=== PATIENT | female | born 1960 | race African-American/Black ===

== ENCOUNTER 2017-11-25 19:02 | Emergency (ER) | payer MEDICAID ==
[2017-11-25 19:12] VITALS: BP 151/79
--- NOTE | 2017-11-25 19:45 | ER Document Report ---
ED Medical Screen (RME) - General Chief Complaint: Arm Problem Stated Complaint: TINGLING IN LEFT ARM Time Seen by Provider: 11/25/17 19:40 Notes: Patient complains of left-sided neck and left arm pain. She does have a rash on her posterior left neck that appears to be coalesced vesicles consistent with possible shingles. TRAVEL OUTSIDE OF THE [place] IN LAST 30 DAYS: No - Related Data Allergies/Adverse Reactions: bees Allergy (Uncoded 11/25/17 19:04) Past Medical History - Social History Chew tobacco use (# tins/day): No Frequency of alcohol use: Occasional Drug Abuse: None Renal/ Medical History: Denies: Hx Peritoneal Dialysis Musculoskeltal Medical History: Reports Hx Arthritis - Immunizations Hx Diphtheria, Pertussis, Tetanus Vaccination: No Physical Exam - Vital signs Vitals: Temp Pulse Resp BP Pulse Ox 98.1 F 73 20 151/79 H 96 11/25/17 19:11 11/25/17 19:11 11/25/17 19:11 11/25/17 19:11 11/25/17 19:11 Course - Vital Signs Vital signs: Temp Pulse Resp BP Pulse Ox 98.1 F 73 20 151/79 H 96 11/25/17 19:11 11/25/17 19:11 11/25/17 19:11 11/25/17 19:11 11/25/17 19:11
[2017-11-25 20:33] LABS: ABSOLUTE EOSINOPHILS # (AUTO) 0.2 10^3/uL (0.0-0.6); ABSOLUTE LYMPHOCYTES (AUTO) 1.9 10^3/uL (0.5-4.7); ABSOLUTE MONOCYTES (AUTO) 0.7 10^3/uL (0.1-1.4); ABSOLUTE NEUT (AUTO) 2.8 10^3/uL (1.7-8.2); BASOPHILS % (AUTO) 0.5 % (0-2); EOSINOPHILS % (AUTO) 2.8 % (0-6); HEMATOCRIT 38.2 % (36.0-47.0); HEMOGLOBIN 12.7 g/dL (12.0-15.5); LYMPHOCYTES % (AUTO) 34.5 % (13-45); MEAN CORPUSCULAR HEMOGLOBIN 28.1 pg (27.0-33.4); MEAN CORPUSCULAR HGB CONC 33.2 g/dL (32.0-36.0); MEAN CORPUSCULAR VOLUME 85 fl (80-97); MONOCYTES % (AUTO) 11.9 % (3-13); PLATELET COUNT 279 10^3/uL (150-450); RED BLOOD COUNT 4.52 10^6/uL (3.72-5.28); SEGMENTED NEUTROPHILS % (AUTO) 50.3 % (42-78); TOTAL CELLS COUNTED % (AUTO) 100 %; WHITE BLOOD COUNT 5.6 10^3/uL (4.0-10.5)
[2017-11-25 20:47] LABS: ALANINE AMINOTRANSFERASE 25 U/L (9-52); ALBUMIN 4.1 g/dL (3.5-5.0); ALKALINE PHOSPHATASE 78 U/L (38-126); ANION GAP 11 (5-19); ASPARTATE AMINO TRANSFERASE 23 U/L (14-36); BILIRUBIN,DIRECT 0.5 mg/dL (0.0-0.4); BILIRUBIN,TOTAL 0.5 mg/dL (0.2-1.3); BLOOD UREA NITROGEN 14 mg/dL (7-20); CALCIUM 9.6 mg/dL (8.4-10.2); CARBON DIOXIDE 30 mmol/L (22-30); CHLORIDE 105 mmol/L (98-107); GLUCOSE 100 mg/dL (75-110); SODIUM 145.7 mmol/L (137-145); TOTAL PROTEIN 7.4 g/dL (6.3-8.2)
--- NOTE | 2017-11-26 08:00 | EKG REPORT ---
SEVERITY:- BORDERLINE ECG - SINUS RHYTHM : Confirmed by: Yonatan José MD 26-Nov-2017 07:59:19
== END 2017-11-25 21:45 | disposition left against medical advice (07) ==
LOC: ER 19:02
DX: R20.2 Paresthesia of skin (principal); M54.2 Cervicalgia; M79.602 Pain in left arm; Z91.030 Bee allergy status; Z53.20 Procedure and treatment not carried out because of patient's decision for unspecified reasons
CPT/HCPCS: 36415; 80053; 84484; 85025; 93005; 93010; 99281

== ENCOUNTER → 2018-08-20 | Outpatient (CLI) | payer MEDICAID ==
--- NOTE | 2018-08-23 12:48 | WOMENS IMAGING REPORT ---
EXAM DESCRIPTION: BILAT SCREENING MAMMO W/CAD COMPLETED DATE/TIME: 08/20/2018 1:30 pm REASON FOR STUDY: Z12.31 BILATERAL SCREENING MAMMOGRAM Z12.31 ENCNTR SCREEN MAMMOGRAM FOR MALIGNANT NEOPLASM OF VILMA COMPARISON: None. TECHNIQUE: Standard craniocaudal and mediolateral oblique views of each breast recorded using [employer] acquisition. LIMITATIONS: None. FINDINGS: No masses, calcifications or architectural distortion. No areas of suspicion. Read with the assistance of CAD. .[facility] - R2 [employer]ova Version 1.3 .[facility] - R2 Cenova Version 1.3 .[facility] - R2 Cenova Version 2.4 .[facility] - R2 Cenova Version 2.4 .[facility] - R2 [employer] Version 9.2 IMPRESSION: NORMAL MAMMOGRAM. BIRADS 1. BREAST DENSITY: b. There are scattered areas of fibroglandular density. BIRAD: 1 NEGATIVE RECOMMENDATION: ROUTINE SCREENING COMMENT: The patient has been notified of the results by letter per SA requirements. Additional no tification policies are in place for contacting patient with suspicious or incomplete findings. Quality ID #[id number]: The [employer] recommends an annual screening mammogram for women aged 40 years or over. This facility utilizes a reminder system to ensure that all patients receive reminder letters, and/or direct phone calls for appointments. This includes reminders for routine scr eening mammograms, diagnostic mammograms, or other Breast Imaging Interventions when appropriate. Th is patient will be placed in the appropriate reminder system. The [employer] (ACR) has developed recommendations for screening MRI of the breast s in certain patient populations, to be used in conjunction with mammography. Breast MRI surveillanc e may be appropriate for women with more than 20% lifetime risk of developing breast cancer as deter mined by genetic testing, significant family history of the disease, or history of mantle radiation f or Hodgkins Disease. ACR Practice Guidelines 2008. TECHNICAL DOCUMENTATION: FINDING NUMBER: (1) ASSESSMENT: (1) JOB ID: [id number] [employer]- All Rights Reserved Reading location - IP/workstation name: [email or web address]
== END ==
LOC: WI 13:06
PROVIDERS: ATTEND Physician Assistant
DX: Z12.31 Encounter for screening mammogram for malignant neoplasm of breast (principal)
CPT/HCPCS: 77067

== ENCOUNTER 2019-07-14 23:23 | Observation (INO) | payer MEDICAID ==
[2019-07-15 01:45] LABS: ABSOLUTE EOSINOPHILS # (AUTO) 0.3 10^3/uL (0.0-0.6); ABSOLUTE LYMPHOCYTES (AUTO) 3.1 10^3/uL (0.5-4.7); ABSOLUTE MONOCYTES (AUTO) 0.7 10^3/uL (0.1-1.4); ABSOLUTE NEUT (AUTO) 2.2 10^3/uL (1.7-8.2); BASOPHILS % (AUTO) 0.7 % (0-2); HEMATOCRIT 41.4 % (36.0-47.0); HEMOGLOBIN 13.8 g/dL (12.0-15.5); LYMPHOCYTES % (AUTO) 49.3 % (13-45); MEAN CORPUSCULAR HGB CONC 33.3 g/dL (32.0-36.0); MEAN CORPUSCULAR VOLUME 84 fl (80-97); MONOCYTES % (AUTO) 10.6 % (3-13); PLATELET COUNT 287 10^3/uL (150-450); RED BLOOD COUNT 4.93 10^6/uL (3.72-5.28); RED CELL DISTRIBUTION WIDTH 14.4 % (11.5-14.0); SEGMENTED NEUTROPHILS % (AUTO) 34.4 % (42-78); TOTAL CELLS COUNTED % (AUTO) 100 %; WHITE BLOOD COUNT 6.3 10^3/uL (4.0-10.5)
--- NOTE | 2019-07-15 01:47 | ER Document Report ---
ED General - General Chief Complaint: High Blood Pressure Stated Complaint: BLOOD PRESSURE ISSUE/BLURRY VISION Time Seen by Provider: 07/15/19 01:32 Primary Care Provider: NACHO RAHMAN PA-C [Primary Care Provider] - Follow up as needed Notes: 59-year-old female presents with headache, blurry vision, left-sided tingling, and slurred speech that lasted approximately 30 minutes tonight. Patient states that she has never had this happen before. When EMS arrived patient's blood pressure was initially 218/130. Patient does not have a history of high blood pressure. Patient states that her symptoms have currently resolved. Patient denies any chest pain. TRAVEL OUTSIDE OF THE [place] IN LAST 30 DAYS: No - Related Data Allergies/Adverse Reactions: bees Allergy (Uncoded 11/25/17 19:04) Home Medications: Meloxicam, prilosec Past Medical History - Social History Smoking Status: Former Smoker Chew tobacco use (# tins/day): No Frequency of alcohol use: weekends Drug Abuse: None Family History: None Patient has suicidal ideation: No Patient has homicidal ideation: No Renal/ Medical History: Denies: Hx Peritoneal Dialysis Musculoskeletal Medical History: Reports Hx Arthritis - Immunizations Hx Diphtheria, Pertussis, Tetanus Vaccination: No Review of Systems - Review of Systems Notes: Constitutional: Negative for fever. HENT: Negative for sore throat. Eyes: Positive for visual changes. Cardiovascular: Negative for chest pain. Respiratory: Negative for shortness of breath. Gastrointestinal: Negative for abdominal pain, vomiting or diarrhea. Genitourinary: Negative for dysuria. Musculoskeletal: Negative for back pain. Skin: Negative for rash. Neurological: Positive for headaches, slurred speech, left-sided tingling. 10 point ROS negative except as marked above and in HPI. Physical Exam - Vital signs Vitals: Temp Pulse Resp BP Pulse Ox 97.8 F 69 16 164/89 H 99 07/14/19 23:46 07/14/19 23:46 07/14/19 23:46 07/14/19 23:46 07/14/19 23:46 - Notes Notes: GENERAL: Well-appearing, well-nourished and in no acute distress. HEAD: Atraumatic, normocephalic. EYES: Pupils equal round and reactive to light, extraocular movements intact, sclera anicteric, conjunctiva are normal. NECK: Normal range of motion, supple without lymphadenopathy or JVD. LUNGS: Breath sounds clear to auscultation bilaterally and equal. No wheezes rales or rhonchi. HEART: Regular rate and rhythm without murmurs, rubs or gallops. EXTREMITIES: Normal range of motion, no pitting or edema. No clubbing or cyanosis. NEUROLOGICAL: Cranial nerves II through XII grossly intact. Normal speech, normal gait. PERRLA. EOM intact bilaterally. No facial droop. No tongue deviation. Industrial Ecology Technician strength equal bilaterally. Sensory intact bilaterally. Upper/lower extremity strength equal bilaterally. PSYCH: Normal mood, normal affect. SKIN: Warm, Dry, normal turgor, no rashes or lesions noted. Course - Re-evaluation Re-evalutation: 07/15/19 59-year-old female presents with headache, blurry vision, left-sided tingling, and slurred speech that lasted approximately 30 minutes tonight. Work-up initiated. Patient was hypertensive upon EMS arrival. Patient denies a [place] history of hypertension. Suspicious for possible TIA versus hypertensive emergency. 07/15/19 03:[address] Schroeder who accepted pt for admission. - Vital Signs Vital signs: Temp Pulse Resp BP Pulse Ox 97.8 F 69 16 164/89 H 99 07/14/19 23:46 07/14/19 23:46 07/14/19 23:46 07/14/19 23:46 07/14/19 23:46 - Laboratory Result Diagrams: 07/14/19 22:57 07/14/19 22:57 Laboratory results interpreted by me: 07/14/19 07/14/19 07/15/19 22:57 22:57 02:00 RDW 14.4 H Lymph % (Auto) 49.3 H Seg Neutrophils % 34.4 L Glucose 133 H Urine Urobilinogen 2.0 H Leukocyte Esterase Rfl TRACE H Discharge - Discharge Clinical Impression: TIA (transient ischemic attack) Condition: Stable Disposition: ADMITTED INPATIENT Admitting Provider: Elda (Hospitalist) Unit Admitted: IMCU Referrals: NACHO RAHMAN PA-C [Primary Care Provider] - Follow up as needed
[2019-07-15 01:51] LABS: ALBUMIN 4.3 g/dL (3.5-5.0); ALKALINE PHOSPHATASE 105 U/L (38-126); ANION GAP 10 (5-19); ASPARTATE AMINO TRANSFERASE 31 U/L (14-36); BILIRUBIN,DIRECT 0.4 mg/dL (0.0-0.4); BILIRUBIN,TOTAL 0.6 mg/dL (0.2-1.3); BLOOD UREA NITROGEN 13 mg/dL (7-20); CALCIUM 9.5 mg/dL (8.4-10.2); CARBON DIOXIDE 28 mmol/L (22-30); CHLORIDE 105 mmol/L (98-107); GLUCOSE 133 mg/dL (75-110); POTASSIUM 4.3 mmol/L (3.6-5.0)
[2019-07-15] MEDS ORDERED: METOCLOPRAMIDE HCL INJ/PF 10 MG/2 ML SDV IV ONE (02:14)
--- NOTE | 2019-07-15 02:24 | RADIOLOGY REPORT (SQ) ---
CLINICAL HISTORY: slurred speech, headache, visual changes COMPARISON: None. TECHNIQUE: CT HEAD WITHOUT IV CONTRAST on 07/15/2019 1:33 AM WEARING APPAREL FOLDER This exam was performed according to our departmental dose-optimization program, which includes automated exposure control, adjustment of the mA and/or kV according to patient size and/or use of iterative reconstruction technique. FINDINGS: There is no acute hemorrhage, mass effect or midline shift. Hernandez-white differentiation is preserved. There is no hydrocephalus. There is no significant volume loss for age. There are mild patchy hypodensities within the periventricular and subcortical white matter, consistent with microangiopathic ischemic changes. The calvarium is intact. Orbits and globes are unremarkable. The paranasal sinuses are clear. Mastoid air cells are clear. IMPRESSION: No acute intracranial findings.
--- NOTE | 2019-07-15 02:27 | RADIOLOGY REPORT (SQ) ---
EXAM DESCRIPTION: XR CHEST 2 VIEWS COMPLETED DATE/TME: 07/15/2019 01:33 CLINICAL HISTORY: 59 years, Female, slurred speech, headache, visual changes COMPARISON: None. NUMBER OF VIEWS: 2 TECHNIQUE: 2 views of the chest LIMITATIONS: None FINDINGS: Heart size is normal. Mild atheromatous change thoracic aorta. Minimal scarring left lung base. Lungs otherwise clear. No pneumothorax IMPRESSION: No acute cardiopulmonary process copyright 2010 [email or web address]- All Rights Reserved
[2019-07-15 02:31] LABS: APPEARANCE,URINE SLIGHTLY-CLOUDY; BILIRUBIN,URINE NEGATIVE (NEGATIVE); COLOR,URINE YELLOW; GLUCOSE, URINE NEGATIVE (NEGATIVE); KETONES,URINE NEGATIVE (NEGATIVE); PROTEIN,URINE NEGATIVE (NEGATIVE); URINE SPECIFIC GRAVITY 1.014
[2019-07-15] MEDS ORDERED: LABETALOL HCL INJ 20 MG/4 ML DISP.SYRIN IV PRN (04:02)
[2019-07-15] MEDS ORDERED: ONDANSETRON HCL INJ/PF 4 MG/2 ML SDV IV PRN (04:02)
[2019-07-15] MEDS ORDERED: DOCUSATE SODIUM 100 MG CAPSULE PO PRN (04:02)
[2019-07-15] MEDS ORDERED: ACETAMINOPHEN 325 MG TABLET PO PRN (04:02)
[2019-07-15] MEDS ORDERED: TEMAZEPAM 15 MG CAPSULE PO PRN (04:02)
[2019-07-15] MEDS ORDERED: MAGNESIUM HYDROXIDE SUSP 30 ML UDCUP PO PRN (04:02)
[2019-07-15] MEDS ORDERED: NALBUPHINE HCL INJ 10 MG/1 ML AMPULE IV PRN ×3 (04:10→04:17)
--- NOTE | 2019-07-15 05:50 | PDOC H&P ---
History of Present Illness Admission Date/PCP: 07/15/2019 03:43 NACHO RAHMAN PA-C Patient complains of: Left-sided tingling History of Present Illness: EMIL PLUNKETT is a 59 year old female who presented to the emergency room via EMS with acute left-sided tingling. The patient admits the sudden onset of a tingling sensation involving the entire left side of her body accompanied by bilateral blurry vision and slurred speech. These symptoms were also associated with a severe throbbing generalized headache. The symptoms began less than an hour prior to her arrival in the emergency room and lasted for a total of 30 minutes. She denies other associated or accompanying signs and symptoms. She denies prior similar episodes. She has not identified any aggravating or ameliorating factors for her left-sided tingling. She called EMS very shortly after the onset of symptoms and upon their arrival they found her to have a blood pressure of 218/130 while she was still experiencing symptoms. After treatment by EMS her blood pressure was reduced and her symptoms resolved completely and have not recurred. In the emergency room the patient was found to have essentially unremarkable evaluation with mild persistent hypertension. She was subsequently admitted to the [facility] on the stroke protocol for further evaluation and treatment. Past Medical History Cardiac Medical History: Denies: Atrial Fibrillation, Coronary Artery Disease, Myocardial Infarction, Hypertension Pulmonary Medical History: Denies: Asthma, Chronic Obstructive Pulmonary Disease (COPD) EENT Medical History: Denies: Cataracts, Ears - Hearing aids Neurological Medical History: Denies: Hemorrhagic CVA, Ischemic CVA, Seizures Endocrine Medical History: Denies: Diabetes Mellitus Type 1, Diabetes Mellitus Type 2, Hyperthyroidism, Hypothyroidism Renal/ Medical History: Denies: Chronic Kidney Disease, Nephrolithiasis Malignancy Medical History: Reports: None GI Medical History: Reports: Gastroesophageal Reflux Disease Denies: Cirrhosis, Crohn's Disease, Hepatitis, Peptic Ulcer Disease, Ulcerative Colitis Musculoskeltal Medical History: Reports: Arthritis Denies: Gout Skin Medical History: Denies: Eczema, Psoriasis Psychiatric Medical History: Denies: Alcohol Dependency, Substance Abuse, Tobacco Dependency Traumatic Medical History: Reports: None Hematology: Denies: Anemia, Bleeding Tendencies Infectious Medical History: Reports: None Past Surgical History Past Surgical History: Reports: None Social History Information Source: Patient Lives with: Alone Smoking Status: Former Smoker Electronic Cigarette use?: No Frequency of Alcohol Use: None Hx Recreational Drug Use: No Drugs: None Hx Prescription Drug Abuse: No - Advance Directive Resuscitation Status: Full Code Surrogate healthcare decision maker:: Floridalma Morfin Family History Family History: CAD, DM. denies: Hypertension, Malignancy Parental Family History Reviewed: Yes Children Family History Reviewed: No Sibling(s) Family History Reviewed.: Yes Medication/Allergy Home Medications: Cephalexin Monohydrate [Keflex 500 mg Capsule] 500 mg PO BID #20 capsule 11/03/12 Tramadol HCl/Acetaminophen [Ultracet 37.5 mg/325 mg Tablet] 1 each PO Q6 #20 tablet 11/03/12 Allergies/Adverse Reactions: bees Allergy (Uncoded 11/25/17 19:04) Review of Systems Constitutional: PRESENT: as per HPI, headache(s). ABSENT: chills, fever(s) Eyes: PRESENT: as per HPI, visual disturbances. ABSENT: other - Eye pain Ears: ABSENT: hearing changes, other - Ear pain Nose, Mouth, and Throat: PRESENT: as per HPI, headache(s). ABSENT: mouth pain, sore throat Cardiovascular: ABSENT: chest pain, palpitations Respiratory: ABSENT: cough, dyspnea Gastrointestinal: ABSENT: abdominal pain, constipation, diarrhea, nausea, vomiting Genitourinary: ABSENT: dysuria, hematuria Musculoskeletal: ABSENT: back pain, joint swelling, muscle weakness Integumentary: ABSENT: pruritus, rash Neurological: PRESENT: as per HPI, abnormal speech, tingling. ABSENT: confusion, convulsions, focal weakness, memory loss Psychiatric: ABSENT: anxiety, depression Endocrine: ABSENT: cold intolerance, heat intolerance Hematologic/Lymphatic: ABSENT: easy bleeding, easy bruising Allergic/Immunologic: ABSENT: seasonal rhinorrhea Physical Exam Vital Signs: Temp Pulse Resp BP Pulse Ox 97.8 F 69 16 164/89 H 99 07/14/19 23:46 07/14/19 23:46 07/14/19 23:46 07/14/19 23:46 07/14/19 23:46 Intake & Output 07/13/19 07/14/19 07/15/19 23:59 23:59 23:59 Weight 105.687 kg General appearance: PRESENT: no acute distress, cooperative, obese Head exam: PRESENT: atraumatic, normocephalic Eye exam: PRESENT: conjunctiva pink. ABSENT: conjunctival injection, scleral icterus Ear exam: PRESENT: normal external ear exam. ABSENT: bleeding, drainage Mouth exam: PRESENT: dry mucosa, neck supple Neck exam: ABSENT: thyromegaly, tracheal deviation Respiratory exam: PRESENT: clear to auscultation omar, symmetrical, unlabored Cardiovascular exam: PRESENT: RRR. ABSENT: clicks, gallop, rubs Pulses: PRESENT: normal radial pulses, normal dorsalis pedis pul Vascular exam: PRESENT: normal capillary refill. ABSENT: pallor GI/Abdominal exam: PRESENT: normal bowel sounds, soft. ABSENT: tenderness Rectal exam: PRESENT: deferred Extremities exam: ABSENT: joint swelling, pedal edema Musculoskeletal exam: ABSENT: deformity, dislocation Neurological exam: PRESENT: alert, oriented to person, oriented to place, oriented to time, oriented to situation, CN II-XII grossly intact. ABSENT: motor sensory deficit Psychiatric exam: PRESENT: appropriate affect, normal mood Skin exam: PRESENT: dry, intact, warm. ABSENT: jaundice, rash, urticaria Results Laboratory Results: 07/14/19 22:57 07/14/19 22:57 07/14/19 07/14/19 07/15/19 22:57 22:57 02:00 WBC 6.3 RBC 4.93 Hgb 13.8 Hct 41.4 MCV 84 MCH 28.0 MCHC 33.3 RDW 14.4 H Plt Count 287 Seg Neutrophils % 34.4 L Sodium 142.6 Potassium 4.3 Chloride 105 Carbon Dioxide 28 Anion Gap 10 BUN 13 Creatinine 0.58 Est GFR ( Amer) > 60 Glucose 133 H Calcium 9.5 Total Bilirubin 0.6 AST 31 Alkaline Phosphatase 105 Total Protein 8.0 Albumin 4.3 Urine Color YELLOW Urine Appearance SLIGHTLY-CLOUDY Urine pH 7.0 Ur Specific Erving 1.014 Urine Protein NEGATIVE Urine Glucose (UA) NEGATIVE Urine Ketones NEGATIVE Urine Blood NEGATIVE Urine RBC (Auto) 2 07/14/19 22:57 Troponin I < 0.012 Impressions: Chest X-Ray 07/15/19 01:33 IMPRESSION: No acute cardiopulmonary process copyright 2011 [employer]- All Rights Reserved Head CT 07/15/19 01:33 IMPRESSION: No acute intracranial findings. Assessment and Plan - Diagnosis (1) TIA (transient ischemic attack) Is this a current diagnosis for this admission?: Yes (2) Hypertension Qualifiers: Hypertension type: essential hypertension Qualified Code(s): I10 - Essential (primary) hypertension Is this a current diagnosis for this admission?: Yes (3) Gastroesophageal reflux disease with esophagitis Is this a current diagnosis for this admission?: Yes (4) Osteoarthritis Qualifiers: Osteoarthritis location: unspecified site Osteoarthritis type: primary Qualified Code(s): M19.91 - Primary osteoarthritis, unspecified site Is this a current diagnosis for this admission?: Yes - Plan Summary Summary: Patient is admitted to the [facility] where she will receive routine supportive and symptomatic cares. She will be on the stroke protocol and as such a consultations for the stroke nurse, PT, OT, speech therapy, nursing home social worker and nutrition services will be made. Patient will have an MRI of the brain, a carotid Doppler study and an echocardiogram performed. Routine laboratory evaluations of her hemoglobin A1c, lipid profile and TSH will be obtained. Daily laboratory evaluations will be obtained as appropriate. Patient will be started on an antiplatelet agent and additional medications will be added as appropriate. She will use Nubain 5 to 10 mg IV every 3 hours as needed for pain control. Ativan 1 mg IV every 4 hours as needed anxiety or restlessness will also be available. - Time Time Spent with patient: 25-34 minutes Medications reviewed and adjusted accordingly: Yes Anticipated discharge: Home, Home with Homehealth - Inpatient Certification Based on my medical assessment, after consideration of the patient's comorbidities, presenting symptoms, or acuity I expect that the services needed warrant INPATIENT care.: Yes I certify that my determination is in accordance with my understanding of Medicare's requirements for reasonable and necessary INPATIENT services [42 CFR 412.3e].: Yes Medical Necessity: Need Close Monitoring Due to Risk of Patient Decompensation, Need For Continuous Telemetry Monitoring, Need for Neurological Checks, Risk of Complication if Not Cared For in Hospital
--- NOTE | 2019-07-15 06:53 | EKG REPORT ---
SEVERITY:- BORDERLINE ECG - SINUS RHYTHM BORDERLINE INFERIOR Q WAVES : Confirmed by: Yonatan José MD 15-Jul-2019 06:53:32
[2019-07-15] MEDS: HEPARIN SOD (PORCINE) 5,000 UNIT/ML 1 ML VIAL SUBCUT SCH ×3 (07:25→22:16)
[2019-07-15 07:26] LABS: CHOLESTEROL 159.14 mg/dL (0-200); TRIGLYCERIDES 39 mg/dL (<150)
[2019-07-15 07:38] LABS: DIRECT LDL 79 mg/dL (<100)
[2019-07-15] MEDS: METOCLOPRAMIDE HCL 10 MG TABLET PO SCH ×4 (08:46→22:16)
[2019-07-15] MEDS: SUCRALFATE 1 GM TABLET PO SCH ×4 (08:46→22:14)
[2019-07-15] MEDS: FAMOTIDINE 20 MG TABLET PO SCH ×4 (08:46→22:15)
--- NOTE | 2019-07-15 08:51 | Progress Note ---
Provider Note Provider Note: 07/15/2019-patient admitted early a.m. I will continue to follow patient. I have assessed and reviewed labs. Weight carotid Doppler, cardiac echo, and MRI studies
[2019-07-15] MEDS ORDERED: DIAZEPAM 5 MG TABLET PO ONE (09:30)
[2019-07-15] MEDS: CLOPIDOGREL BISULFATE 75 MG TABLET PO SCH (11:31)
[2019-07-15] MEDS: ASPIRIN 81 MG TABLET, ENT COATED PO SCH (11:31)
--- NOTE | 2019-07-15 12:46 | RADIOLOGY REPORT (SQ) ---
EXAM DESCRIPTION: MRI HEAD WITHOUT COMPLETED DATE/TIME: 07/15/2019 12:27 pm REASON FOR STUDY: Right hemisphere TIA COMPARISON: None. TECHNIQUE: Multiplanar imaging includes non-contrasted T1, T2, FLAIR, and diffusion with ADC map seq uences. Images stored on PACS. LIMITATIONS: None. FINDINGS: ANATOMY: No anomalies. Normal vascular flow voids. Pituitary fossa normal. CSF SPACES: Normal in size and contour. No hemorrhage. CEREBRUM: Sulci and gyri normal in size and contour. Infrequent areas of high signal intensity on FL AIR sequences in the subcortical and periventricular white matter. . No evidence of hemorrhage, mas s, or extraaxial fluid collection. POSTERIOR FOSSA: No signal alteration. No hemorrhage. No edema, masses or mass effect. Internal vincent tory canals, cerebello-pontine angles, mastoids normal. DIFFUSION IMAGING: Negative for acute or sub-acute infarction. ORBITS: No masses. Globes normal. PARANASAL SINUSES: No fluid levels. Mucosa normal. OTHER: No other significant finding. IMPRESSION: Minimal microvascular ischemic change. No acute intracranial event. EVIDENCE OF ACUTE STROKE: NO. TECHNICAL DOCUMENTATION: JOB ID: [id number]- All Rights Reserved Reading location - IP/workstation name: [email or web address]
--- NOTE | 2019-07-15 14:58 | RADIOLOGY REPORT (SQ) ---
EXAM DESCRIPTION: CAROTID DOPPLER COMPLETED DATE/TIME: 07/15/2019 1:54 pm REASON FOR STUDY: Right hemisphere TIA COMPARISON: None. TECHNIQUE: Grayscale ultrasound, Doppler velocity and spectra, and color Doppler images acquired of the extra-cranial carotid and vertebral arteries. Images stored on PACS. LIMITATIONS: None. FINDINGS: RIGHT CAROTID CCA Velocities: Within normal limits. ICA Velocities Peak systolic 77 cm/s. End diastolic 33 cm/s. Proximal ICA/CCA peak systolic ratio 1.13. Spectra normal. No significant plaque. LEFT CAROTID CCA Velocities: Within normal limits. ICA Velocities Peak systolic 77 cm/s. End diastolic 34 cm/s. Proximal ICA/CCA peak systolic ratio 0.99. Spectra normal. No significant plaque. VERTEBRAL ARTERIES: Antegrade flow. Normal waveforms. SUBCLAVIAN ARTERIES: No finding. OTHER: No other significant finding. IMPRESSION: NO HEMODYNAMICALLY SIGNIFICANT STENOSIS. COMMENT: Quality ID #[id number]: Velocity criteria are extrapolated from the diameter data as defined by t he Society of Radiologists in Ultrasound Consensus Conference. Radiology 2003: 229; 340-346. TECHNICAL DOCUMENTATION: JOB ID: [id number] [employer]- All Rights Reserved Reading location - IP/workstation name: [email or web address]
--- NOTE | 2019-07-15 16:47 | XCELERA REPORT ---
[address] [address] Transthoracic Echocardiogram Report Name: EMIL PLUNKETT Age: 59 yrs Gender: Female : 1960 Patient Status: Inpatient Patient Location: [address] [place], [place] [address] Study Date: 07/15/2019 10:33 AM History: TIA Height: 65 in Weight: 233 lb BSA: 2.1 m2 Procedure: A two-dimensional transthoracic echocardiogram with color flow and Doppler was performed. The study was technically difficult with many images being suboptimal in quality. Reason For Study: Right hemisphere TIA Previous Evaluation: No previous studies were available. History: TIA. Ordering Physician: ADAL DIEHL Performed By: Fiona Lee Interpretation Summary There is no obvious cardiac source of embolus noted on this transthoracic echocardiogram. Follow-up with a [facility] is suggested if cardiac source is still suspected. Left ventricular systolic function is normal. The Ejection Fraction estimate is 60-65% The right ventricle is normal in size and function. There is a trace amount of mitral regurgitation There is no aortic valve stenosis There is a trace or physiologic amount of tricuspid regurgitation There is no pericardial effusion. MMode/2D Measurements & Calculations RVDd: 3.8 cm LVIDd: 4.8 cm FS: 39.7 % Ao root diam: 3.2 cm IVSd: 1.2 cm LVIDs: 2.9 cm EDV(Teich): 105.0 ml Ao root area: 8.1 cm2 LVPWd: 1.2 cm ESV(Teich): 31.2 ml LA dimension: 3.5 cm EF(Teich): 70.3 % Doppler Measurements & Calculations MV E max tash: MV P1/2t max tash: Ao V2 max: LV V1 max P.1 cm/sec 68.6 cm/sec 175.1 cm/sec 5.8 mmHg MV A max tash: MV P1/2t: 91.7 msec Ao max PG: LV V1 max: 85.4 cm/sec MVA(P1/2t): 2.4 cm2 12.3 mmHg 120.9 cm/sec MV E/A: 0.81 MV dec slope: 219.1 cm/sec2 MV dec time: 0.31 sec PA V2 max: PI end-d tash: TR max tash: MV P1/2t-pr_phl: 77.5 cm/sec 89.5 cm/sec 256.9 cm/sec 91.7 msec PA max PG: TR max P.4 mmHg 26.4 mmHg Left Ventricle The left ventricle is normal in size. There is moderate to severe concentric left ventricular hypertrophy. Left ventricular systolic function is normal. The Ejection Fraction estimate is 60-65%. Doppler measurements suggest impaired left ventricular relaxation, which is associated with grade I/IV or mild diastolic dysfunction. The left ventricular wall motion is normal. There is no thrombus. Right Ventricle The right ventricle is normal in size and function. The right ventricular systolic function is normal. Atria The right atrium is normal. The left atrium is borderline dilated. The interatrial septum is intact with no evidence for an atrial septal defect. Mitral Valve The mitral valve leaflets are sclerotic, but show no functional abnormalities. There is mild mitral annular calcification. There is no mitral valve stenosis. There is a trace amount of mitral regurgitation. Aortic Valve The aortic valve opens well. The aortic valve is normal in structure and function. The aortic valve is trileaflet. There is no aortic valve stenosis. No aortic regurgitation is present. Tricuspid Valve The tricuspid valve is normal in structure and function. There is no tricuspid stenosis. There is a trace or physiologic amount of tricuspid regurgitation. Right ventricular systolic pressure is estimated to be within upper limit of normal. Pulmonic Valve The pulmonic valve is normal in structure and function. There is a trace or physiologic amount of pulmonic regurgitation. Great Vessels The aortic root is normal size. The inferior vena cava appeared normal and decreased < 50% with respiration (RAP 10-15 mmHg). Effusions There is no pericardial effusion. : ADAL DIEHL Anil
[2019-07-15] MEDS ORDERED: ATORVASTATIN CALCIUM 40 MG TABLET PO SCH (22:00)
[2019-07-16 05:56] LABS: HEMATOCRIT 39.4 % (36.0-47.0); HEMOGLOBIN 13.2 g/dL (12.0-15.5); MEAN CORPUSCULAR HGB CONC 33.6 g/dL (32.0-36.0); MEAN CORPUSCULAR VOLUME 84 fl (80-97); PLATELET COUNT 278 10^3/uL (150-450); RED BLOOD COUNT 4.72 10^6/uL (3.72-5.28); RED CELL DISTRIBUTION WIDTH 14.3 % (11.5-14.0); WHITE BLOOD COUNT 5.5 10^3/uL (4.0-10.5)
[2019-07-16 06:19] LABS: ANION GAP 10 (5-19); BLOOD UREA NITROGEN 13 mg/dL (7-20); CALCIUM 9.5 mg/dL (8.4-10.2); CARBON DIOXIDE 26 mmol/L (22-30); CHLORIDE 105 mmol/L (98-107); GLUCOSE 98 mg/dL (75-110); POTASSIUM 4.1 mmol/L (3.6-5.0)
[2019-07-16] MEDS: HEPARIN SOD (PORCINE) 5,000 UNIT/ML 1 ML VIAL SUBCUT SCH (06:33)
--- NOTE | 2019-07-16 08:14 | PDOC DISCHARGE SUMMARY ---
Impression - Admit/DC Date/PCP Admission Date/Primary Care Provider: 07/15/19 03:43 NACHO RAHMAN PA-C Discharge Date: 07/09/19 - Discharge Diagnosis (1) TIA (transient ischemic attack) Is this a current diagnosis for this admission?: Yes (2) Gastroesophageal reflux disease with esophagitis Is this a current diagnosis for this admission?: Yes (3) Hypertension Is this a current diagnosis for this admission?: Yes (4) Osteoarthritis Is this a current diagnosis for this admission?: Yes - Assessment Summary: Patient is admitted to the [facility] where she will receive routine supportive and symptomatic cares. She will be on the stroke protocol and as such a consultations for the stroke nurse, PT, OT, speech therapy, manager social responsibility and nutrition services will be made. Patient will have an MRI of the brain, a carotid Doppler study and an echocardiogram performed. Routine laboratory evaluations of her hemoglobin A1c, lipid profile and TSH will be obtained. Daily laboratory evaluations will be obtained as appropriate. Patient will be started on an antiplatelet agent and additional medications will be added as appropriate. She will use Nubain 5 to 10 mg IV every 3 hours as needed for pain control. Ativan 1 mg IV every 4 hours as needed anxiety or restlessness will also be available. - Additional Information Resuscitation Status: Full Code Discharge Diet: As Tolerated Discharge Activity: Activity As Tolerated Referrals: NACHO RAHMAN PA-C [Primary Care Provider] - Follow up as needed Prescriptions: Atorvastatin Calcium [Lipitor 40 mg Tablet] 40 mg PO QHS #30 tablet Home Medications: Meloxicam [Mobic] 7.5 mg PO DAILY 07/15/19 Omeprazole 20 mg PO DAILY 07/15/19 Aspirin [Ecotrin 81 mg EC Tablet] 81 mg PO DAILY tabec 07/16/19 Atorvastatin Calcium [Lipitor 40 mg Tablet] 40 mg PO QHS #30 tablet 07/16/19 History of Present Illiness History of Present Illness: EMIL PLUNKETT is a 59 year old female who presented to the ER with left-sided tingling. Hospital Course Hospital Course: Patient presented via EMS with acute left-sided tingling. Patient states this tingling involve the entire left side of her body with bilateral blurry vision and slurred speech. There is also associated throbbing generalized headaches. Patient was placed on [facility] obtained carotid Doppler, echo, MRI of the brain all of which were negative. At this time patient improves for short-term help she follow-up with primary care in 1 week. I have continued patient on atorvastatin 40 mg p.o. daily. Physical Exam Vital Signs: Temp Pulse Resp BP Pulse Ox 98.0 F 70 16 133/84 H 93 07/16/19 04:20 07/16/19 07:00 07/16/19 04:20 07/16/19 04:20 07/16/19 04:20 Intake & Output 07/15/19 07/16/19 07/17/19 06:59 06:59 06:59 Intake Total 1465 Balance 1465 Weight 106.2 kg 108.1 kg General appearance: PRESENT: no acute distress, well-developed, well-nourished Head exam: PRESENT: atraumatic, normocephalic Eye exam: PRESENT: conjunctiva pink, EOMI, PERRLA. ABSENT: scleral icterus Ear exam: PRESENT: normal external ear exam Mouth exam: PRESENT: moist, tongue midline Neck exam: ABSENT: carotid bruit, JVD, lymphadenopathy, thyromegaly Respiratory exam: PRESENT: clear to auscultation omar. ABSENT: rales, rhonchi, wheezes Cardiovascular exam: PRESENT: RRR. ABSENT: diastolic murmur, rubs, systolic murmur Pulses: PRESENT: normal dorsalis pedis pul Vascular exam: PRESENT: normal capillary refill GI/Abdominal exam: PRESENT: normal bowel sounds, soft. ABSENT: distended, guarding, mass, organolmegaly, rebound, tenderness Rectal exam: PRESENT: deferred Extremities exam: PRESENT: full ROM. ABSENT: calf tenderness, clubbing, pedal edema Neurological exam: PRESENT: alert, awake, oriented to person, oriented to place, oriented to time, oriented to situation, CN II-XII grossly intact. ABSENT: motor sensory deficit Psychiatric exam: PRESENT: appropriate affect, normal mood. ABSENT: homicidal ideation, suicidal ideation Skin exam: PRESENT: dry, intact, warm. ABSENT: cyanosis, rash Results Laboratory Results: WBC 5.5 10^3/uL (4.0-10.5) 07/16/19 05:36 RBC 4.72 10^6/uL (3.72-5.28) 07/16/19 05:36 Hgb 13.2 g/dL (12.0-15.5) 07/16/19 05:36 Hct 39.4 % (36.0-47.0) 07/16/19 05:36 MCV 84 fl (80-97) 07/16/19 05:36 MCH 28.0 pg (27.0-33.4) 07/16/19 05:36 MCHC 33.6 g/dL (32.0-36.0) 07/16/19 05:36 RDW 14.3 % (11.5-14.0) H 07/16/19 05:36 Plt Count 278 10^3/uL (150-450) 07/16/19 05:36 Lymph % (Auto) 49.3 % (13-45) H 07/14/19 22:57 [place] % (Auto) 10.6 % (3-13) 07/14/19 22:57 Eos % (Auto) 5.0 % (0-6) 07/14/19 22:57 Baso % (Auto) 0.7 % (0-2) 07/14/19 22:57 Absolute Neuts (auto) 2.2 10^3/uL (1.7-8.2) 07/14/19 22:57 Absolute Lymphs (auto) 3.1 10^3/uL (0.5-4.7) 07/14/19 22:57 Absolute Monos (auto) 0.7 10^3/uL (0.1-1.4) 07/14/19 22:57 Absolute Eos (auto) 0.3 10^3/uL (0.0-0.6) 07/14/19 22:57 Absolute Basos (auto) 0.0 10^3/uL (0.0-0.2) 07/14/19 22:57 Seg Neutrophils % 34.4 % (42-78) L 07/14/19 22:57 Sodium 141.2 mmol/L (137-145) 07/16/19 05:36 Potassium 4.1 mmol/L (3.6-5.0) 07/16/19 05:36 Chloride 105 mmol/L (98-107) 07/16/19 05:36 Carbon Dioxide 26 mmol/L (22-30) 07/16/19 05:36 Anion Gap 10 (5-19) 07/16/19 05:36 BUN 13 mg/dL (7-20) 07/16/19 05:36 Creatinine 0.62 mg/dL (0.52-1.25) 07/16/19 05:36 Est GFR ( Amer) > 60 (>60) 07/16/19 05:36 Est GFR (MDRD) Non-Af > 60 (>60) 07/16/19 05:36 Glucose 98 mg/dL (75-110) 07/16/19 05:36 Hemoglobin A1c % 6.0 % (4.7-6.0) 07/15/19 06:33 Calcium 9.5 mg/dL (8.4-10.2) 07/16/19 05:36 Total Bilirubin 0.6 mg/dL (0.2-1.3) 07/14/19 22:57 Direct Bilirubin 0.4 mg/dL (0.0-0.4) 07/14/19 22:57 Neonat Total Bilirubin Not Reportable 07/14/19 22:57 Neonat Direct Bilirubin Not Reportable 07/14/19 22:57 Neonat Indirect Bili Not Reportable 07/14/19 22:57 AST 31 U/L (14-36) 07/14/19 22:57 ALT 29 U/L (<35) 07/14/19 22:57 Alkaline Phosphatase 105 U/L (38-126) 07/14/19 22:57 Troponin I < 0.012 ng/mL 07/14/19 22:57 Total Protein 8.0 g/dL (6.3-8.2) 07/14/19 22:57 Albumin 4.3 g/dL (3.5-5.0) 07/14/19 22:57 Triglycerides 39 mg/dL (<150) 07/15/19 06:33 Cholesterol 159.14 mg/dL (0-200) 07/15/19 06:33 LDL Cholesterol Direct 79 mg/dL (<100) 07/15/19 06:33 VLDL Cholesterol 8.0 mg/dL (10-31) L 07/15/19 06:33 HDL Cholesterol 59 mg/dL (>40) 07/15/19 06:33 Urine Color YELLOW 07/15/19 02:00 Urine Appearance SLIGHTLY-CLOUDY 07/15/19 02:00 Urine pH 7.0 (5.0-9.0) 07/15/19 02:00 Ur Specific [place] 1.014 07/15/19 02:00 Urine Protein NEGATIVE mg/dL (NEGATIVE) 07/15/19 02:00 Urine Glucose (UA) NEGATIVE mg/dL (NEGATIVE) 07/15/19 02:00 Urine Ketones NEGATIVE mg/dL (NEGATIVE) 07/15/19 02:00 Urine Blood NEGATIVE (NEGATIVE) 07/15/19 02:00 Urine Nitrite (Reflex) NEGATIVE (NEGATIVE) 07/15/19 02:00 Urine Bilirubin NEGATIVE (NEGATIVE) 07/15/19 02:00 Urine Urobilinogen 2.0 mg/dL (<2.0) H 07/15/19 02:00 Leukocyte Esterase Rfl TRACE (NEGATIVE) H 07/15/19 02:00 Urine RBC (Auto) 2 /HPF 07/15/19 02:00 Urine WBC (Reflex) 1 /HPF 07/15/19 02:00 Squamous Epi Cells Auto 11 /HPF 07/15/19 02:00 Urine Mucus (Auto) RARE /LPF 07/15/19 02:00 Urine Ascorbic Acid NEGATIVE (NEGATIVE) 07/15/19 02:00 07/14/19 22:57 Troponin I < 0.012 Impressions: Head MRI 07/15/19 00:00 IMPRESSION: Minimal microvascular ischemic change. No acute intracranial event. EVIDENCE OF ACUTE STROKE: NO. Chest X-Ray 07/15/19 01:33 IMPRESSION: No acute cardiopulmonary process copyright 2011 [employer]- All Rights Reserved Head CT 07/15/19 01:33 IMPRESSION: No acute intracranial findings. Carotid Doppler Study 07/15/19 04:05 IMPRESSION: NO HEMODYNAMICALLY SIGNIFICANT STENOSIS. Plan Time Spent: Greater than 30 Minutes Stroke Is this a Stroke Patient?: No Acute Heart Failure - Is this a Heart Failure Patient?: No
[2019-07-16] MEDS: FAMOTIDINE 20 MG TABLET PO SCH ×2 (08:44→10:37)
[2019-07-16] MEDS: METOCLOPRAMIDE HCL 10 MG TABLET PO SCH ×2 (08:44→10:37)
[2019-07-16] MEDS: SUCRALFATE 1 GM TABLET PO SCH ×2 (08:46→10:37)
[2019-07-16] MEDS: CLOPIDOGREL BISULFATE 75 MG TABLET PO SCH (09:24)
[2019-07-16] MEDS: ASPIRIN 81 MG TABLET, ENT COATED PO SCH (09:24)
[2019-07-16 11:38] VITALS: BP 126/76
== END 2019-07-16 11:55 | disposition home or self-care (01) ==
LOC: ER 23:23 → EH 07-15 03:43 → INTOOBSV 07-15 03:43 → 3S 07-15 05:26
PROVIDERS: ADMIT Emergency Medicine; ATTEND Emergency Medicine
DX: G45.9 Transient cerebral ischemic attack, unspecified (principal); K21.0 Gastro-esophageal reflux disease with esophagitis; I10 Essential (primary) hypertension; M19.91 Primary osteoarthritis, unspecified site; R51 Headache; E66.9 Obesity, unspecified; Z82.49 Family history of ischemic heart disease and other diseases of the circulatory system; Z87.891 Personal history of nicotine dependence; Z60.2 Problems related to living alone; Z79.1 Long term (current) use of non-steroidal anti-inflammatories (NSAID); Z83.3 Family history of diabetes mellitus
CPT/HCPCS: 93005; 99285; 96374; 36415 ×2; 85025; 85027; 80048; 80053; 81001; 84484; 83036; 80061; 93306; 93880; 70551; 71046; 70450; 93010; 97161; 97165; G0378 ×3; J1644 ×2; J3490 ×12; J2765

== ENCOUNTER 2019-09-07 07:15 | Day surgery (SDC) | payer MEDICAID ==
[2019-09-06 10:43] LABS: HEMATOCRIT 37.8 % (36.0-47.0); HEMOGLOBIN 12.7 g/dL (12.0-15.5); MEAN CORPUSCULAR HEMOGLOBIN 27.8 pg (27.0-33.4); MEAN CORPUSCULAR HGB CONC 33.7 g/dL (32.0-36.0); MEAN CORPUSCULAR VOLUME 83 fl (80-97); PLATELET COUNT 254 10^3/uL (150-450); RED BLOOD COUNT 4.57 10^6/uL (3.72-5.28); RED CELL DISTRIBUTION WIDTH 13.9 % (11.5-14.0); WHITE BLOOD COUNT 4.9 10^3/uL (4.0-10.5)
[2019-09-06 10:53] LABS: APPEARANCE,URINE SLIGHTLY-CLOUDY; BILIRUBIN,URINE NEGATIVE (NEGATIVE); COLOR,URINE YELLOW; GLUCOSE, URINE NEGATIVE (NEGATIVE); KETONES,URINE NEGATIVE (NEGATIVE); LEUKOCYTE ESTERASE,URINE TRACE (NEGATIVE); NITRITE,URINE NEGATIVE (NEGATIVE); PROTEIN,URINE NEGATIVE (NEGATIVE); URINE SPECIFIC GRAVITY 1.024; UROBILINOGEN,URINE NEGATIVE mg/dL (<2.0)
[~2019-09-07 07:15] MED LIST: LACTATED RINGERS 1000 ML IV PRN
[2019-09-07] MEDS ORDERED: PROPOFOL INJ 200 MG/20 ML VIAL IV ONE (09:22)
[2019-09-07] MEDS ORDERED: ONDANSETRON HCL INJ/PF 4 MG/2 ML SDV ONE (09:22)
[2019-09-07] MEDS ORDERED: DEXAMETHASONE SOD PHOSPHATE INJ 4 MG/1 ML VIAL ONE (09:22)
[2019-09-07] MEDS ORDERED: LIDOCAINE 2% INJ-PF (100 MG/5 ML) SYRINGE ONE (09:22)
[2019-09-07] MEDS ORDERED: FENTANYL CITRATE INJ/PF 100 MCG/2 ML AMPUL ONE (09:22)
[2019-09-07] MEDS ORDERED: MIDAZOLAM 2 MG/2 ML INJ ONE (09:22)
[2019-09-07] MEDS ORDERED: RINGERS SOLUTION,LACTATED 1,000 ML IV PRN (10:14)
[2019-09-07] MEDS ORDERED: OXYCODONE-ACETAMINOPHEN 5-325 MG TABLET PO PRN ×2 (10:14)
[2019-09-07] MEDS ORDERED: KETOROLAC TROMETHAMINE INJ/PF 30 MG/1 ML SDV IV PRN (10:14)
[2019-09-07] MEDS ORDERED: IBUPROFEN 800 MG TABLET PO PRN (10:14)
--- NOTE | 2019-09-07 10:19 | Operative Report ---
Operative Report DATE OF SURGERY: 09/07/19 PREOPERATIVE DIAGNOSIS: Stenotic cervix with postmenopausal bleeding POSTOPERATIVE DIAGNOSIS: Same as well as uterine polyp OPERATION: Hysteroscopy D&C Myosure SURGEON: SHANDA WELLS ANESTHESIA: GA TISSUE REMOVED OR ALTERED: Uterine polyp COMPLICATIONS: None ESTIMATED BLOOD LOSS: 5 cc INTRAOPERATIVE FINDINGS: Uterine polyp PROCEDURE: Patient was taken the OR and placed in supine position. General anesthesia was induced and she is placed in a dorsal lithotomy position using Arnulfo stirrups. Her perineum and vagina were prepared and draped in sterile fashion. Of note the patient has very bad hiradenitis supurativa. [facility] A bivalve speculum was placed in the vagina. The anterior lip cervix was grasped with a tenaculum. Using the very small dilators the cervix was slowly dilated which allowed sounding to 8 cm before and after the case. Upon further dilation this allowed the hysteroscope to be placed. Endocervical curettings were obtained. The hysteroscope was carried out showing a polyp at about 9:00 growing off the wall of the endometrium. The MyoSure device was placed and the polyp was removed without incident. All instruments were withdrawn and a sharp curettage was carried out. Repeat sound was 8 cm. All instruments were removed at the end of the case patient was placed back in supine position taken recovery in stable condition.
--- NOTE | 2019-09-07 10:21 | Discharge Summary ---
Discharge Summary (SDC) - Discharge Final Diagnosis: Postmenopausal bleeding Date of Surgery: 09/07/19 Discharge Date: 09/07/19 Condition: Good Referrals: NACHO RAHMAN PA-C [Primary Care Provider] - Discharge Diet: Regular Discharge Activity: Balance Activity w/Rest Home Care Assistance: None Needed Report the Following to Your Physician Immediately: Fever over 101 Degrees
[2019-09-07] MEDS ORDERED: KETOROLAC TROMETHAMINE INJ/PF 30 MG/1 ML SDV ONE (10:43)
[2019-09-07] MEDS ORDERED: IPRATROPIUM/ALBUTEROL 0.5-2.5 MG/3 ML AMPUL NEB ONE (10:51)
[2019-09-07 13:26] VITALS: BP 123/74
== END 2019-09-07 13:00 | disposition home or self-care (01) ==
LOC: OROUT 07:15
PROVIDERS: ATTEND Obstetrics & Gynecology
DX: N95.0 Postmenopausal bleeding (principal); N84.0 Polyp of corpus uteri; N88.2 Stricture and stenosis of cervix uteri; E78.5 Hyperlipidemia, unspecified
CPT/HCPCS: 36415; 85027; 81001; 88305 ×2; 00952; 58558; J2250; J1100; J3010; J2001; J1885; J2405; J2704; J7620; 952

== ENCOUNTER → 2020-05-31 | Outpatient (CLI) | payer MEDICAID ==
--- NOTE | 2020-05-31 14:43 | WOMENS IMAGING REPORT ---
EXAM DESCRIPTION: 3D SCREENING MAMMO BILAT IMAGES COMPLETED DATE/TIME: 05/31/2020 1:24 pm REASON FOR STUDY: Z12.31 ENCOUNTER FOR SCREENING MAMMOGRAM FOR MALIGNANT NEOPLASM OF BREAST Z12.31 ENCNTR SCREEN MAMMOGRAM FOR MALIGNANT NEOPLASM OF VILMA COMPARISON: 2019 EXAM PARAMETERS: Views: Standard craniocaudal and mediolateral oblique views of each breast recorded using digital acquisition and breast tomosynthesis. Read with the assistance of CAD. .[facility] - R2 C [employer] Developer Version 9.2 LIMITATIONS: None. FINDINGS: No suspicious masses, suspicious calcifications or architectural distortion. No areas of c oncern. IMPRESSION: NEGATIVE MAMMOGRAM. BIRADS 1. BREAST DENSITY: b. There are scattered areas of fibroglandular density. BIRAD: ASSESSMENT: 1 NEGATIVE RECOMMENDATION: ROUTINE SCREENING COMMENT: The patient has been notified of the results by letter per MQSA requirements. Additional no tification policies are in place for contacting patient with suspicious or incomplete findings. Quality ID #[id number]: The [employer] recommends an annual screening mammogram for women aged 40 years or over. This facility utilizes a reminder system to ensure that all patients receive reminder letters, and/or direct phone calls for appointments. This includes reminders for routine scr eening mammograms, diagnostic mammograms, or other Breast Imaging Interventions when appropriate. Th is patient will be placed in the appropriate reminder system. TECHNICAL DOCUMENTATION: FINDING NUMBER: (1) ASSESSMENT: (1) JOB ID: [id number] 2010 [employer]- All Rights Reserved Reading location - IP/workstation name: [email or web address]
== END ==
LOC: WI 12:50
PROVIDERS: ATTEND Physician Assistant
DX: Z12.31 Encounter for screening mammogram for malignant neoplasm of breast (principal)
CPT/HCPCS: 77063; 77067